=== PATIENT | female | born 1955 | race Caucasian/White ===

== ENCOUNTER 2018-07-31 10:00 | Inpatient (IN) ==
--- NOTE | 2018-07-31 10:18 | PROVIDER DOCUMENTATION ---
HPI-General Adult - General Chief Complaint: Fall Stated Complaint: FALL Time Seen by Provider: 07/31/18 10:08 Source: patient Allergies/Adverse Reactions: Patient Allergies Allergy/AdvReac Type Severity Reaction Status Date / Time No Known Allergies Allergy Verified 08/17/17 15:16 Home Medications: Home Medication List Medication Instructions Recorded Confirmed Last Taken Type ATORVAstatin [Lipitor] 1 tab PO HS 08/17/17 08/17/17 Unknown History Albuterol Sulfate Inhaler 4 puff PO DAILY 08/17/17 08/17/17 Unknown History [Ventolin Hfa] Alprazolam 1 tab PO TID 08/17/17 08/17/17 Unknown History Aspirin [Aspir-Low] 1 tab PO DAILY 08/17/17 08/17/17 Unknown History Diphenhydramine HCl [Allergy 2 tab PO DAILY 08/17/17 08/17/17 Unknown History Relief] Fluticasone/[place] 100/50 INH 2 puff PO DAILY 08/17/17 08/17/17 Unknown History [Advair 100/50 Diskus] Gabapentin 1 cap PO TID 08/17/17 08/17/17 Unknown History Hydrocodone/Acetaminophen [[place] 1 each PO Q8HR 08/17/17 08/17/17 Unknown History 10-325 Tablet] Levothyroxine [Synthroid] 1 tab PO DAILY 08/17/17 08/17/17 Unknown History Methocarbamol [Robaxin-750] 1 tab PO BID 08/17/17 08/17/17 Unknown History Metoprolol [Lopressor] 1 tab PO DAILY 08/17/17 08/17/17 Unknown History Mirtazapine [Remeron] 1 tab PO HS 08/17/17 08/17/17 Unknown History Omeprazole 1 cap PO DAILY 08/17/17 08/17/17 Unknown History Polyethylene Glycol 3350 1 packet PO DAILY 08/17/17 08/17/17 Unknown History Risperidone 1 tab PO BID 08/17/17 08/17/17 Unknown History Trazodone [Desyrel] 1 tab PO HS 08/17/17 08/17/17 Unknown History Valacyclovir HCl [Valacyclovir] 1 tab PO TID 08/17/17 08/17/17 Unknown History - History of Present Illness -Gen Adult Nature of Presenting Problems: Pt. is 62 yof that presents with c/o weakness for three days. Pt. reports today she dropped her coffee three times and had a BM on herself three times. She has multiple medical issues and is on many medications. Location of Pain/Injury: reports: none. denies: head, face, mouth, neck, chest, upper extremity, hand(s), abdomen, back, pelvis, genitalia, lower extremity, feet, upper body, lower body, generalized, other Pain Radiation: reports: no radiation. denies: arm(s), back, buttocks, chest, epigastric, feet, groin, jaw, flank (L), legs (lower), LLQ, LUQ, neck, periumbilical, flank (R), RLQ, RUQ, shoulder(s), scapula, scrotal, sternal notch, suprapubic, legs (upper), urethral, vaginal, other Quality of Pain: reports: none. denies: burning, pressure, sharp, throbbing Severity: reports: mild. denies: moderate, severe Onset/Duration: reports: gradual, 3 days ago Timing: reports: still present. denies: improving, gone now, constant, getting worse Context/Activities at Onset: reports: none. denies: light activity, moderate activity, vigorous activity, recent emotional stress, recent physical stress, recent trauma history, possible bad food, cold exposure, eating, out of country travel, rest, sleep, sexual activity, other Modifying Factors: improves with: nothing Associated Symptoms: reports: diarrhea, malaise, weakness. denies: denies symptoms, anxiety, arm pain, back/neck pain, chest pain, constipation, cough, diaphoresis, dizziness, EENT symptoms, fatigue, fever/chills, genitourinary problems, headaches, heartburn, joint pain, loss of appetite, muscle aches, sinu s congestion/drainage, nausea, rash, seizure, shortness of breath, sensory/motor loss, pain with inspiration, swelling/mass in abdomen, syncope, vomiting, trouble walking, other Similar Symptoms Previously?: Yes Recently seen or treated by another doctor?: No Review of Systems - Adult - REVIEW OF SYSTEMS - ADULT Constitutional: reports: see jazz SALINAS. denies: night sweats, weight gain, weight loss Eyes: reports: no symptoms reported Ears, Nose, Mouth & Throat: reports: no symptoms reported Cardiovascular: reports: no symptoms reported Respiratory: reports: no symptoms reported Gastrointestinal: reports: see HPI, diarrhea. denies: hematemesis, frequent heartburn, vomiting Genitourinary: reports: no symptoms reported Musculoskeletal: reports: see HPI, muscle weakness. denies: back pain, joint pain, joint swelling, neck pain Integumentary: reports: no symptoms reported Neurological: reports: no symptoms reported Psychiatric: reports: no symptoms reported Past History - Adult - PAST MEDICAL HISTORY-ADULT Review of Records: reports: Old Records Reviewed, Nursing Assessment Review, Medications Reviewed, Social history reviewed & non-contributory. Major Childhood Illnesses: reports: denies history Cardiovascular: reports: denies history Respiratory: reports: denies history Gastrointestinal: reports: denies history Obstetrical/Gynecological: reports: denies history Genitourinary: reports: denies history Musculoskeletal: reports: denies history Neurological: reports: denies history Endocrine/Immune: reports: denies history Other Conditions: reports: denies history - IMMUNIZATION STATUS Childhood Immunizations: See Nurse Assessment Flu Vaccine: See Nurse Assessment - FAMILY HISTORY Family History: reviewed, not pertinent - SOCIAL HISTORY Smoking: denies Physical Exam-General - PHYSICAL EXAM-ADULT Initial Vital Signs Reviewed: Yes - CONSTITUTIONAL General Appearance: alert, no apparent distress, obese - EYES Eyes: PERRL/EOMI, pink conjunctivae. negative: conjuctival exudate, scleral icterus, subconjunctival hemorrhage - HEAD, EARS, NOSE, MOUTH & THROAT HENMT: normocephalic/atraumatic, moist mucous membranes. negative: angioedema, frontal tenderness, maxillary tenderness - NECK Neck: non-tender, full range of motion, supple, normal inspection. negative: lymphadenopathy, trachial deviation, thyromegaly - RESPIRATORY Respiratory: lungs clear, normal breath sounds. negative: crackles, rales, rhonchi, stridor, wheezing - CARDIOVASCULAR Cardiovascular: normal peripheral pulses, regular rate, rhythm, no edema, no JVD . negative: extra beats, friction rub, irregularly irregular - GASTROINTESTINAL (ABDOMEN) Abdominal Exam: non tender, soft, abnormal bowel sounds (hypoactive). negative: rigid, rebound, tenderness, hernia, mass - LYMPHATIC Lymphatic: no adenopathy. negative: axilla node tender, cervical node tenderness - MUSCULOSKELETAL Back Exam: normal inspection, no CVA tenderness, no vertebral tenderness. negat lacy: ecchymosis, swelling, vertebral tenderness Extremity: normal range of motion, non-tender, normal inspection. negative: deformity, erythema, inflammation, swelling, tenderness Peripheral Pulses: radial (R): 2+, radial (L): 2+ - SKIN Integumentary: normal color, normal turgor, warm/dry. negative: cyanosis, jaundice, pallor, tenderness, warm - NEUROLOGIC Neurologic: grossly normal, no motor/sensory deficits, motor weakness. negative: aphasia, facial droop, focal weakness, sensory deficit - PSYCHIATRIC Psych/Mental Status: normal mood/affect, normal thought content, normal thought process, oriented x 3. negative: anxious, paranoid, tearful Progress - PLAN OF CARE/RESULTS Progress/Plan/Lab Results: Vital Signs - 8 hr 07/31/18 10:02 Temperature 97.4 F L Pulse Rate 73 Respiratory Rate 20 Blood Pressure 125/61 O2 Sat by Pulse Oximetry 94 L Orders Category Date Time Status FSBS [Finger Stick Blood Sugar (ED)] DIRECTED Care 07/31/18 10:12 Ordered Saline Loc NOW Care 07/31/18 10:12 Ordered FLAT/UPRIGHT ABD/1 VIEW CHEST [RAD] Stat Exams 07/31/18 10:13 Ordered CBC WITH ELECTRONIC DIFF [HEME] Stat Lab 07/31/18 10:13 Uncollected CK PROFILE [SP CHEM] Stat Lab 07/31/18 10:13 Uncollected COMPREHENSIVE METABOLIC PANEL [CHEM] Stat Lab 07/31/18 10:13 Uncollected PRO B-NATRIURETIC PEPTIDE Stat Lab 07/31/18 10:13 Ordered TROPONIN T Stat Lab 07/31/18 10:13 Uncollected TSH Stat Lab 07/31/18 10:[address] W/POSS RFLX CULT [URINALYSIS] Stat Lab 07/31/18 10:13 Uncollected EKG [EKG] Stat Ther 07/31/18 10:12 Ordered Laboratory Tests 07/31/18 07/31/18 07/31/18 10:23 10:25 10:25 WBC 11.49 H RBC 3.61 L Hgb 8.3 L Hct 28.3 L MCV 78.4 L MCH 23.0 L MCHC 29.3 L RDW Std Deviation 16.4 H Plt Count 353 MPV 10.9 H Immature Gran % (Auto) 0.3 Neut % (Auto) 81.0 H Lymph % (Auto) 11.5 L [place] % (Auto) 5.2 Eos % (Auto) 1.8 Baso % (Auto) 0.2 Immature Gran # (Auto) 0.04 Neut # (Auto) 9.30 H Lymph # (Auto) 1.32 [place] # (Auto) 0.60 H Eos # (Auto) 0.21 Baso # (Auto) 0.02 POC Glucose 184 H Troponin T Oun-R-Djqdqdtnrrb Pept 6286 H Urine Source Urine Color Urine Turbidity Urine pH Ur Specific [place] Urine Protein Ur Glucose (Stick) Ur Ketones (Stick) Urine Blood Urine Nitrite Urine Bilirubin Urobilinogen Dipstick Urine Leukocytes Urine WBC (Auto) Urine RBC (Auto) U Epithel Cells (Auto) Urine Bacteria (Auto) 07/31/18 07/31/18 10:25 10:57 WBC RBC Hgb Hct MCV MCH MCHC RDW Std Deviation Plt Count MPV Immature Gran % (Auto) Neut % (Auto) Lymph % (Auto) [place] % (Auto) Eos % (Auto) Baso % (Auto) Immature Gran # (Auto) Neut # (Auto) Lymph # (Auto) [place] # (Auto) Eos # (Auto) Baso # (Auto) POC Glucose Troponin T 0.031 Rmj-V-Ntlgrbeqroh Pept Urine Source CLEAN CATCH Urine Color YELLOW Urine Turbidity CLEAR Urine pH 5.0 Ur Specific [place] 1.012 Urine Protein TRACE A Ur Glucose (Stick) NEGATIVE Ur Ketones (Stick) NEGATIVE Urine Blood NEGATIVE Urine Nitrite NEGATIVE Urine Bilirubin NEGATIVE Urobilinogen Dipstick NORMAL Urine Leukocytes SMALL A Urine WBC (Auto) 10-20 A Urine RBC (Auto) <10 U Epithel Cells (Auto) <10 Urine Bacteria (Auto) 2+ Discussed results and plan of care with patient. Patient agrees with plan and verbalizes understanding. Result Diagrams: 07/31/18 10:25 07/31/18 10:25 - EKG 1 Time of EKG reading by physician:: 10:28 EKG Read and Signed by:: Cayetano Carson EKG Interpretation (*Must complete 3 of following elements*): Abnormal Rate: 70 Rhythm: NSR with RBBB QRS: RBB - XRAY 1 XRAY Study: Chest ([facility] [address], [address], [place] [address] Department of Imaging Patient: RAYO PHILLIPS Date: 07/31/18#: [id number] : 1955DM Status: REG ERAt#: [id number] Age/Sex: 62/FRoom/Bed: Loc: ED Ordering Physician: Mike Moreland Family Physician: Cesar Trinh MD Reason for Procedure: abd pain Signed EXAM: FLAT/UPRIGHT ABD/1 VIEW CHEST 07/31/2018 HISTORY: abd pain TECHNIQUE: Flat and upright abdomen with PA chest COMMENT: There is some gas in the stomach and transverse colon. There is generally possibility of bowel gas elsewhere. There are surgical clips in the right upper quadrant. The heart size is enlarged and the pulmonary vascularity appears somewhat increased. The lungs are not as well-expanded as on 08/17/2017. IMPRESSION: Nonspecific abdomen. Cardiomegaly and possible mild pulmonary edema. Electronically signed by Dino Mendoza 07/31/2018 11:03 AM 07/31/18 1103 Interpreting Physician: Dino Mendoza MD Dictated Date/Time: 1102 cc: Mike Moreland; Cesar Trinh MD), Abdomen XRAY Interpretation: See note - CONSULTS/PCP/HOSPITALIST Notification #1 *Consult/PCP/Hospitalist*: Nori Salguero Time Discussed: 11:33 Reason/Comments: Admission Consult Disposition: Will see in ED, Admit Departure - Departure Date of Disposition Decision: 07/31/18 Time of Disposition Decision: 11:34 DIAGNOSIS: Hyperglycemia, Hyponatremia, Hyperkalemia Anemia Qualifiers: Anemia type: unspecified type Qualified Code(s): D64.9 - Anemia, unspecified CHF exacerbation Qualifiers: Heart failure type: unspecified Qualified Code(s): I50.9 - Heart failure, unspecified Acute renal failure Qualifiers: Acute renal failure type: unspecified Qualified Code(s): N17.9 - Acute kidney failure, unspecified Disposition: ADMITTED INPATIENT 09 Certified Medical Emergency: Emergent Condition: Stable Referrals and Follow-Ups: Cesar Trinh MD [Primary Care Provider] - - Critical Care Note This patient required my direct & personal management of CC.: Yes Total Time (mins): 35 Critical Care Statement: This patient required my direct personal management to treat or rule out processes, the absence of which, could potentiallly result in sudden, clinically significant life or limb threatening deterioration. Attestation - Physician/ DEAN Attestation Patient care was provided by Advanced Practice Provider:: Yes Advanced Practice Provider:: Mike Moreland Advanced Practice Provider documentation review:: The Mid-level provider documentation, treatment plan and medical decision making was reviewed by the physician who agrees with all treatment and medical decision making by the MLP. The physician spent face to face time with patient:: No Advanced Practice Provider documentation review:: Supervising physician onsite and consulted in the evaluation and care of this patient. The physician did not have a face to face encounter with the patient.
[2018-07-31 10:45] LABS: BASO# 0.02 X1000 (0.0-0.2); BASO% 0.2 % (0.0-0.8); EOS# 0.21 X1000 (0.0-0.7); EOS% 1.8 % (0.0-10.0); HEMATOCRIT 28.3 % (37.0-47.0); HEMOGLOBIN 8.3 g/dL (12.0-16.0); IMM GRAN# 0.04 X1000 (0.0-0.04); IMM GRAN% 0.3 % (0.0-0.5); LYMPH# 1.32 X1000 (1.2-3.4); LYMPH% 11.5 % (20.5-51.1); MCHC 29.3 g/dL (33-37); MCV 78.4 FL (81-99); MONO% 5.2 % (1.7-9.3); MPV 10.9 FL (7.4-10.4); PLT 353 X1000 (130-400); RBC 3.61 XMIL (4.2-5.4); RDW 16.4 % (11.5-14.5); WBC 11.49 X1000 (4.8-10.8)
[2018-07-31 11:04] LABS: URINE SOURCE CLEAN CATCH
--- NOTE | 2018-07-31 11:05 | Diag Imaging Result Doc PS360 ---
EXAM: FLAT/UPRIGHT ABD/1 VIEW CHEST 07/31/2018 HISTORY: abd pain TECHNIQUE: Flat and upright abdomen with PA chest COMMENT: There is some gas in the stomach and transverse colon. There is generally possibility of bowel gas elsewhere. There are surgical clips in the right upper quadrant. The heart size is enlarged and the pulmonary vascularity appears somewhat increased. The lungs are not as well-expanded as on 08/17/2017. IMPRESSION: Nonspecific abdomen. Cardiomegaly and possible mild pulmonary edema. Electronically signed by Dino Mendoza 07/31/2018 11:03 AM
[2018-07-31 11:07] LABS: BILIRUBIN URINE NEGATIVE (NEGATIVE); BLOOD URINE NEGATIVE (NEGATIVE); COLOR YELLOW; GLUCOSE URINE NEGATIVE (NEGATIVE); KETONE URINE NEGATIVE (NEGATIVE); LEUKOCYTES URINE SMALL (NEGATIVE); NITRITE URINE NEGATIVE (NEGATIVE); PROTEIN URINE TRACE mg/dL (NEGATIVE); SP GRAVITY URINE 1.012; TURBIDITY URINE CLEAR (CLEAR); UR EPITHELIAL CELLS <10 /HPF (<10); URINE BACTERIA 2+ /HPF; URINE RBC <10 /HPF (<10); UROBILINOGEN URINE NORMAL (NORMAL)
[2018-07-31] MEDS ORDERED: LASIX IV ONE (11:33)
--- NOTE | 2018-07-31 11:40 | EKG Report ---
Test Performed on : 07/31/2018 10:25:29 AM Test Reason : weakness Blood Pressure : / mmHG Vent. Rate : 070 BPM Atrial Rate : 070 BPM P-R Int : 190 ms QRS Dur : 104 ms QT Int : 414 ms P-R-T Axes : 025 028 149 degrees QTc Int : 447 ms Normal sinus rhythm. Incomplete right bundle branch block Possible Inferior infarct (cited on or before 26-FEB-2009) ST & T wave abnormality, consider lateral ischemia Abnormal ECG When compared with ECG of 17-AUG-2017 15:04, T wave inversion more evident in Anterolateral leads Unconfirmed Result
[2018-07-31 11:42] LABS: ALB/GLOB RATIO 1.4; ALBUMIN 4.2 g/dL (3.5-5.0); TOTAL BILIRUBIN 0.2 mg/dL (0.20-1.00); TOTAL PROTEIN 7.2 g/dL (6.3-8.3)
[2018-07-31 11:44] LABS: POTASSIUM 6.5 mmol/L (3.5-5.1)
[2018-07-31] MEDS ORDERED: NS 1,000 ML IV ONE (11:47)
[2018-07-31] MEDS ORDERED: ALBUTEROL 0.5% INH CONC FOR HYPERKALEMIA INH ONE (12:20)
[2018-07-31] MEDS ORDERED: HUMULIN R IV ONE (12:21)
[2018-07-31] MEDS ORDERED: SODIUM BICARBONATE 8.4% IV PUSH ONE (12:21)
[2018-07-31] MEDS ORDERED: CALCIUM GLUCONATE 1 GM in NS 50 ML IV ONE (12:21)
[2018-07-31] MEDS ORDERED: D50W SYRINGE IV ONE (12:21)
[2018-07-31 12:34] LABS: CK INDEX 2.4 (0.0-2.5); CK-MB 8.43 ng/mL (0.0-5.0)
[2018-07-31] MEDS ORDERED: ALBUTEROL 0.5% INH CONC FOR HYPERKALEMIA ONE (12:46)
[2018-07-31 12:51] LABS: UR CREAT RANDOM 135.1 mg/dL (11-20); UR PROT RANDOM 10.6 mg/dL
[2018-07-31] MEDS ORDERED: ZOFRAN IV PRN (13:06)
[2018-07-31] MEDS ORDERED: NS 1,000 ML IV SCH (13:15)
[2018-07-31] MEDS ORDERED: LOKELMA POWDER PACKET PO ONE (13:31)
[2018-07-31] MEDS ORDERED: SODIUM CHLORIDE 0.9% INJ PRN (13:57)
[2018-07-31] MEDS ORDERED: LEVOPHED 8 MG in D5 1/2 NS 250 ML IV SCH (14:00)
[2018-07-31] MEDS ORDERED: SODIUM CHLORIDE 0.9% INJ SCH (14:15)
[2018-07-31 15:03] LABS: ALLEN TEST NO; BE -5.5 mmoll (-3.0-3.0); BLOOD TYPE ARTERIAL; HCO3-(ACT) 20.6 mmoll (20.0-26.0); O2(CT) 10.4 mL/dL (15.0-23.0); O2HB 92.8 % (95.0-99.0); PO2(98.6) 71 mmHg (60-100); SAMPLE BLOOD; SAO2 95.1 % (95.0-100.0); THB 7.9 g/dL (11.5-17.4); pH(98.6) 7.23 (7.35-7.45)
[2018-07-31 15:04] LABS: MODALITY CANNULA
[2018-07-31 15:05] LABS: PCO2(98.6) 52 mmHg (35-45)
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
[2018-07-31] MEDS: HUMULIN R SUBQ SCH ×2 (16:45→21:01)
[2018-07-31] MEDS ORDERED: XANAX PO SCH (17:00)
[2018-07-31 17:21] LABS: CALCIUM 8.9 mg/dL (8.8-10.2); CK INDEX 2.4 (0.0-2.5); CK-MB 7.72 ng/mL (0.0-5.0); CREATININE 4.8 mg/dL (0.5-0.9); PHOSPHORUS 6.9 mg/dL (2.7-4.5); POTASSIUM 4.9 mmol/L (3.5-5.1)
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
[2018-07-31] MEDS: SODIUM BICARBONATE 8.4% 100 MEQ in D5W 1,000 ML IV SCH (18:18)
[2018-07-31] MEDS: ROCEPHIN 1 GM in NS 50 ML IV SCH (18:18)
[2018-07-31] MEDS: NORCO-7.5 PO PRN (22:47)
[2018-08-01 04:26] LABS: ALLEN TEST YES; BE 2.9 mmoll (-3.0-3.0); BLOOD TYPE ARTERIAL; HCO3-(ACT) 27.2 mmoll (20.0-26.0); METHB 0.7 % (0.0-1.5); O2(CT) 10.8 mL/dL (15.0-23.0); O2HB 96.7 % (95.0-99.0); PO2(98.6) 98 mmHg (60-100); SAMPLE BLOOD; SAO2 99.6 % (95.0-100.0); THB 7.8 g/dL (11.5-17.4); pH(98.6) 7.36 (7.35-7.45)
[2018-08-01 04:27] LABS: MODALITY CANNULA; PCO2(98.6) 51 mmHg (35-45)
[2018-08-01 05:23] LABS: BASO# 0.01 X1000 (0.0-0.2); BASO% 0.1 % (0.0-0.8); EOS# 0.21 X1000 (0.0-0.7); EOS% 1.9 % (0.0-10.0); HEMATOCRIT 25.5 % (37.0-47.0); HEMOGLOBIN 7.5 g/dL (12.0-16.0); IMM GRAN# 0.04 X1000 (0.0-0.04); IMM GRAN% 0.4 % (0.0-0.5); LYMPH# 1.51 X1000 (1.2-3.4); LYMPH% 13.4 % (20.5-51.1); MCH 22.8 PG (27-31); MCHC 29.4 g/dL (33-37); MCV 77.5 FL (81-99); MONO# 0.86 X1000 (0.11-0.59); MONO% 7.6 % (1.7-9.3); MPV 10.9 FL (7.4-10.4); NEUT# 8.62 X1000 (1.4-6.5); NEUT% 76.6 % (42.2-75.2); PLT 375 X1000 (130-400); RBC 3.29 XMIL (4.2-5.4); RDW 16.4 % (11.5-14.5); WBC 11.25 X1000 (4.8-10.8)
[2018-08-01 05:49] LABS: ALBUMIN 3.5 g/dL (3.5-5.0); CALCIUM 8.4 mg/dL (8.8-10.2); CREATININE 2.9 mg/dL (0.5-0.9); PHOSPHORUS 4.6 mg/dL (2.7-4.5); POTASSIUM 5.1 mmol/L (3.5-5.1)
[2018-08-01] MEDS: HUMULIN R SUBQ SCH ×4 (06:03→20:45)
[2018-08-01] MEDS: PROTONIX IV SCH (06:09)
[2018-08-01] MEDS ORDERED: SYNTHROID IV SCH (07:00)
[2018-08-01] MEDS ORDERED: SYNTHROID PO SCH ×2 (07:00→09:00)
[2018-08-01] MEDS: SODIUM BICARBONATE 8.4% 100 MEQ in D5W 1,000 ML IV SCH (07:07)
--- NOTE | 2018-08-01 07:42 | EKG Report ---
Test Performed on : 08/01/2018 07:31:09 AM Test Reason : tachycardia Blood Pressure : / mmHG Vent. Rate : 076 BPM Atrial Rate : 076 BPM P-R Int : 184 ms QRS Dur : 092 ms QT Int : 406 ms P-R-T Axes : 032 064 145 degrees QTc Int : 456 ms Normal sinus rhythm. Incomplete right bundle branch block Nonspecific T wave abnormality Abnormal ECG When compared with ECG of 31-JUL-2018 10:25, (Unconfirmed) Borderline criteria for Inferior infarct are no longer present Confirmed by Klarissa GAITAN, Aniceto Horn ([id number]) on 08/05/2018 7:26:32 PM
--- NOTE | 2018-08-01 09:13 | Diag Imaging Result Doc PS360 ---
EXAM: CHEST-PORTABLE 08/01/2018 HISTORY: dyspnea TECHNIQUE: AP portable at 0848 COMMENT: There is cardiomegaly. There is increasing interstitial pulmonary edema. IMPRESSION: Worsened pulmonary edema. Electronically signed by Dino Mendoza 08/01/2018 9:11 AM
[2018-08-01] MEDS: NORCO-7.5 PO PRN ×2 (09:17→18:25)
[2018-08-01] MEDS: NS 1,000 ML IV SCH ×2 (09:18→20:56)
[2018-08-01] MEDS ORDERED: LASIX IV ONE (09:22)
--- NOTE | 2018-08-01 16:04 | NEPHROLOGY PROGRESS NOTE ---
DATE: 08/01/2018 SUBJECTIVE: No complaints today. No nausea, vomiting or other complaints. OBJECTIVE: Vital Signs: Blood pressure 114/66, heart rate 82, respirations 17, afebrile. Generally: No acute distress. Skin: Warm and dry. Neck: Neck veins are not distended. Heart: Regular. No gallops. Lungs: Equal. No crackles. Abdomen: Soft, nontender. Bowel sounds present. Extremities: Have 1+ edema. No clubbing or cyanosis. IMPRESSION: Acute kidney injury secondary to intravascular volume depletion in the context of angiotensin receptor mariya. Urine output is improving. Creatinine is falling. BUN is falling. Excellent urine output. Continue current care. cc: Eleazar De oLs Santos MD
[2018-08-01] MEDS: ROCEPHIN 1 GM in NS 50 ML IV SCH (16:54)
--- NOTE | 2018-08-01 17:46 | PROGRESS NOTE ---
DATE: 08/01/2018 SUBJECTIVE: The patient is resting comfortably in bed. She states that she feels a lot better today. No acute events noted overnight. OBJECTIVE: Vital Signs: Temperature 98.6 degrees, blood pressure 119/74, heart rate 78, respirations 17, O2 saturations 95% on 3 L nasal cannula. General: This is a chronically ill- appearing elderly female lying in bed in no acute distress. Heart: S1, S2 normal. Regular rate and rhythm. Lungs: Equal air entry bilaterally. No crackles. No rales. Abdomen: Positive bowel sounds. Soft, nontender, nondistended. Extremities: No edema. No cyanosis. Neurologic: The patient is alert and oriented x4. LABORATORY DATA: White blood cell count 11, hemoglobin 7.5, hematocrit 25, platelets 375,000. ABG: pH of 7.36, pCO2 51, pO2 98, bicarb 27, sodium 131, potassium 5.1, chloride 93, CO2 26, BUN 52, creatinine 2.9, glucose 173, phosphorus 4.6, albumin 3.5. IMAGING: Chest x-ray shows pulmonary edema. ASSESSMENT AND PLAN: 1. Acute kidney injury. Slowly improving. We will discontinue the bicarb drip and start the patient on normal saline. The patient's urine output remains adequate, and her BUN and creatinine are improving. Further recommendations to follow from the venture capitalist. 2. Urinary tract infection. The urine culture is growing gram-negative rods. Continue on Rocephin pending the final culture results. 3. Diarrhea. We will order stool studies. 4. Hypotension. We will wean off the Levophed. 5. Hypothyroidism. Continue on Synthroid. 6. Morbid obesity. Aware. 7. Diabetes mellitus type 2. Continue on sliding scale insulin. 8. Chronic pain. Continue on [place] as needed. 9. Anemia. We will check iron studies. 10. Deep vein thrombosis prophylaxis. We will start the patient on heparin. cc: MD SHANNON Dimas
--- NOTE | 2018-08-01 18:09 | Diag Imaging Result Doc PS360 ---
EXAM: US RENAL 2 (RETROPER) COMPLETE - 08/01/2018 HISTORY: niru, hyperkalemia TECHNIQUE: Bilateral renal ultrasound COMPARISON: None. FINDINGS: The right kidney measures 9.6 x 4 point 4 x 4 centimeters in size, with cortical thickness of approximately 0.9 cm. The left kidney measures 10.2 x 5 x 4.4 cm in size, with cortical thickness of approximately 0.9 cm. There is no renal mass, stone, or hydronephrosis identified. The urinary bladder is decompressed by Davis catheter and is not evaluated. IMPRESSION: No visible renal abnormality. Electronically signed by Carlos Harry 08/01/2018 6:06 PM
[2018-08-01] MEDS: HEPARIN SUBQ SCH (20:56)
[2018-08-02] MEDS: NORCO-7.5 PO PRN (02:27)
[2018-08-02] MEDS: HUMULIN R SUBQ SCH ×4 (06:10→20:28)
[2018-08-02] MEDS: SYNTHROID PO SCH (06:13)
[2018-08-02] MEDS: PROTONIX IV SCH (06:13)
[2018-08-02 06:27] LABS: HEMATOCRIT 27.1 % (37.0-47.0); HEMOGLOBIN 7.9 g/dL (12.0-16.0); MCH 22.8 PG (27-31); MCHC 29.2 g/dL (33-37); MCV 78.3 FL (81-99); MPV 10.4 FL (7.4-10.4); RBC 3.46 XMIL (4.2-5.4); RDW 16.5 % (11.5-14.5); WBC 11.17 X1000 (4.8-10.8)
[2018-08-02 06:41] LABS: ALBUMIN 3.6 g/dL (3.5-5.0); CALCIUM 9.1 mg/dL (8.8-10.2); CREATININE 1.4 mg/dL (0.5-0.9); IRON SATURATION 4 %; PHOSPHORUS 2.1 mg/dL (2.7-4.5); TIBC 321 ug/dL; TOTAL IRON 14 ug/dL (49-151); UNBOUND IRON 307 ug/dL (112-346)
[2018-08-02 08:30] LABS: VITAMIN D 25 HYDROXY 81.9 NG/DL
[2018-08-02] MEDS: HEPARIN SUBQ SCH ×2 (08:59→20:25)
[2018-08-02] MEDS: NEURONTIN PO SCH ×3 (08:59→17:13)
[2018-08-02] MEDS: SOMA PO SCH ×2 (09:04→20:29)
[2018-08-02] MEDS: EFFEXOR PO SCH ×2 (09:35→20:25)
--- NOTE | 2018-08-02 12:19 | PROGRESS NOTE ---
DATE: 08/02/2018 SUBJECTIVE: The patient is awake and alert. She states that she did not sleep last night. OBJECTIVE: Vital Signs: Temperature 98.6 degrees, blood pressure 126/94, heart rate 99, respirations 25, O2 saturation 92% on 3 L nasal cannula. General: This is a chronically ill- appearing elderly female lying in bed in no acute distress. Heart: S1, S2 normal. Tachycardic. Lungs: Equal air entry bilaterally. No crackles. No rales. Abdomen: Positive bowel sounds. Soft, nontender, nondistended. Extremities: No edema. No cyanosis. Neurologic: The patient is alert and oriented x4. LABORATORY DATA: White blood cell count 11, hemoglobin 7.9, hematocrit 27, platelets 394,000, sodium 137, potassium 5, chloride 98, CO2 27, BUN 25, creatinine 1.4, glucose 128, phosphorus 2.1. ASSESSMENT AND PLAN: 1. Acute kidney injury, improved. Will discontinue the IV fluids. We will continue to monitor the patient's urine output closely. 2. Urinary tract infection secondary to Klebsiella. Continue on Rocephin. 3. Diarrhea. Improved. Stool studies are negative. 4. Chronic pain. Continue on the current medications. 5. Hypothyroidism. Continue on Synthroid. 6. Iron deficiency anemia. The hemoglobin and hematocrit are stable. We will start the patient on iron supplementation. 7. Obesity. Aware. 8. Deep vein thrombosis prophylaxis. Continue on heparin. 9. Disposition. The patient is stable for transfer to the medical floor. We will consult physical therapy. cc: Saima Salguero MD [facility]
--- NOTE | 2018-08-02 12:23 | Diag Imaging Result Doc PS360 ---
EXAM: CHEST-PORTABLE HISTORY: pulmonary edema TECHNIQUE: Portable chest single view COMPARISON: 08/01/2018 FINDINGS: Poor inspiratory effort. The heart is enlarged. There is mild pulmonary edema. This is slightly less pronounced than on the prior study. Sternal wires are present. No pleural effusions identified. IMPRESSION: Improvement in the pulmonary edema. Electronically signed by Cesar Chun 08/02/2018 12:20 PM
[2018-08-02] MEDS: NORCO-10 PO SCH ×2 (12:42→20:26)
[2018-08-02] MEDS: ROCEPHIN 1 GM in NS 50 ML IV SCH (17:13)
--- NOTE | 2018-08-02 18:15 | NEPHROLOGY PROGRESS NOTE ---
DATE: 08/02/2018 SUBJECTIVE: She is sitting up in the chair, eating her lunch. No complaints. Hoping for transfer to a regular floor bed. OBJECTIVE: Blood pressure 94/73, heart rate 101, respirations 29. Intake 3.4 L. Output 3.8 L. On physical exam, no acute distress. Skin is warm and dry. Neck veins are not distended. Heart is regular. No gallops. Lungs are equal. No crackles. Abdomen is soft, obese, nontender. Bowel sounds present. Extremities: Trace edema. No clubbing or cyanosis. IMPRESSION AND PLAN: Acute kidney injury. Secondary to intravascular volume depletion in the context of angiotensin receptor mariya therapy. Excellent urine output. Normal chemistries. Creatinine is down to 1.4. We will sign off today, but if we can be of further assistance, please do not hesitate to call. cc: Eleazar De Los Santos MD
[2018-08-02] MEDS ORDERED: DESYREL PO SCH (21:00)
[2018-08-02] MEDS ORDERED: ASPIRIN EC PO SCH (21:00)
[2018-08-02] MEDS ORDERED: REMERON PO SCH (21:00)
[2018-08-02] MEDS ORDERED: LIPITOR PO SCH (21:00)
[2018-08-03] MEDS: NORCO-10 PO SCH (05:03)
[2018-08-03] MEDS: SYNTHROID PO SCH (06:42)
[2018-08-03] MEDS: HUMULIN R SUBQ SCH (06:55)
[2018-08-03] MEDS: PROTONIX IV SCH (06:56)
[2018-08-03 07:12] LABS: HEMATOCRIT 29.9 % (37.0-47.0); HEMOGLOBIN 8.6 g/dL (12.0-16.0); MCH 23.6 PG (27-31); MCHC 28.8 g/dL (33-37); MCV 81.9 FL (81-99); MPV 10.3 FL (7.4-10.4); RBC 3.65 XMIL (4.2-5.4); WBC 11.88 X1000 (4.8-10.8)
[2018-08-03 07:31] LABS: ALBUMIN 3.6 g/dL (3.5-5.0); CALCIUM 9.3 mg/dL (8.8-10.2); CREATININE 1.1 mg/dL (0.5-0.9); POTASSIUM 4.8 mmol/L (3.5-5.1)
[2018-08-03] MEDS: HEPARIN SUBQ SCH (08:34)
[2018-08-03] MEDS: SOMA PO SCH (08:34)
[2018-08-03] MEDS: NEURONTIN PO SCH (08:34)
[2018-08-03] MEDS: EFFEXOR PO SCH (08:34)
[2018-08-03] MEDS ORDERED: ICAR-C PO SCH (09:00)
[2018-08-03] MEDS ORDERED: ALTACE PO SCH (09:45)
[2018-08-03] MEDS ORDERED: LOPRESSOR PO SCH (09:45)
[2018-08-03] MEDS ORDERED: SODIUM PHOSPHATE 40 MMOL in NS 250 ML IV ONE (10:30)
[2018-08-03 12:40] VITALS: BP 169/59
--- NOTE | 2018-08-11 20:04 | DISCHARGE SUMMARY ---
ADMISSION DATE: 07/31/2018 DISCHARGE DATE: 08/03/2018 FINAL DISCHARGE DIAGNOSES: 1. Acute kidney injury. 2. Urinary tract infection secondary to Klebsiella. 3. Diarrhea. 4. Chronic pain. 5. Hypothyroidism. 6. Iron deficiency anemia. 7. Obesity. CONSULTATIONS: Nephrology consultation with Dr. De Los Santos. HOSPITAL COURSE: Ms. Donahue is a 62-year-old female with a history of multiple medical problems who presented to the ER with a chief complaint of general malaise. On admission, the patient was noted to have a potassium of 6.5 and a BUN of 62 and a creatinine of 5. The patient was admitted to the hospitalist service. Also, the patient was noted to have a urinary tract infection. The patient was initially admitted to the ICU because she required pressor support. She was started on IV fluids and her urine output improved. Nephrology was also consulted for further recommendations. It was thought that the patient's renal failure was secondary to sepsis as a result of her urinary tract infection. The patient continued to improve clinically. She was ultimately transferred out of the ICU and her IV fluids were discontinued. She was also seen by Physical therapy and ambulated without any difficulty. Ultimately the urine culture grew out Klebsiella and the patient's antibiotics were adjusted. The patient continued to improve clinically and was cleared for discharge on 08/03/2018. The patient was noted to have a creatinine of 1.1 on the day of discharge. DISCHARGE MEDICATIONS: 1. Keflex 500 mg oral twice a day. 2. Lactobacillus 1 tab oral twice a day. 3. Icar C one tab oral twice a day. 4. Albuterol inhaler p.r.n. 5. Aspirin 81 mg oral daily. 6. Trazodone 100 mg oral at bedtime. 7. Omeprazole 1 tab oral daily. 8. Xanax 1 tab oral 3 times a day. 9. Lipitor 40 mg oral at bedtime. 10. Gabapentin 300 mg oral 3 times a day. 11. Synthroid 1 tab oral daily. 12. Lopressor 250 mg oral daily. 13. Remeron 45 mg oral at bedtime. 14. MiraLAX 1 packet oral daily. 15. [place] 10/325 one tab oral every 8 hours p.r.n. 16. Soma 350 mg oral twice a day. 17. Glargine 40 units subcutaneous daily. 18. Lasix 40 mg p.o. daily. 19. Trulicity 0.75 mg subcutaneous as directed. 20. Effexor ER 100 mg oral twice a day. 21. Metformin 500 mg oral twice a day. 22. Altace 10 mg oral daily. DISCHARGE DIET: 1800 ADA diet. ACTIVITY: As tolerated. FOLLOWUP INSTRUCTIONS: The patient will need to follow up with her primary care physician in 1 to 2 weeks. cc: Saima Salguero MD
== END 2018-08-03 13:47 | disposition home or self-care (01) | DRG 871 ==
LOC: ED 10:00 → ICU 12:59 → 3N 08-02 23:04
PROVIDERS: ATTEND Internal Medicine
CPT/HCPCS: 51702; 71010; 71045; 74022; 76770; 80053; 80069; 81001; 82009; 82306; 82438; 82550; 82553; 82570; 82607; 82728; 82746; 82784; 82805; 82948; 83540; 83550; 83630; 83735; 83880; 84100; 84155; 84156; 84165; 84300; 84302; 84443; 84484; 84540; 84999; 85025; 85027; 85651; 86038; 86039; 86334; 87045; 87046; 87077; 87088; 87177; 87186; 87205; 87324; 87449; 88313; 89055; 93005; 93010; 94640; 94761; 94762; 96365; 96375; 97116; 97162; 99285; 99291; A9270; C9113; J0610; J0696; J1644; J1940; J7030; J7050; J7070; S0164; XXXXX

== ENCOUNTER 2019-06-02 09:23 | Inpatient (IN) ==
--- NOTE | 2019-06-02 10:10 | PROVIDER DOCUMENTATION ---
HPI-General Adult - General Chief Complaint: Abnormal Lab[s] Stated Complaint: SOB,LOW BLOOD COUNT Time Seen by Provider: 06/02/19 09:59 Source: patient Allergies/Adverse Reactions: Patient Allergies Allergy/AdvReac Type Severity Reaction Status Date / Time diltiazem [From Cardizem] Allergy RASH Verified 06/02/19 11:34 Penicillins Allergy RASH Verified 06/02/19 11:34 Sulfa (Sulfonamide Allergy RASH Verified 06/02/19 11:34 Antibiotics) Home Medications: Home Medication List Medication Instructions Recorded Confirmed Last Taken Type ATORVAstatin [Lipitor] 1 tab PO HS 08/17/17 06/02/19 Unknown History Albuterol Sulfate Inhaler 4 puff PO DAILY 08/17/17 06/02/19 Unknown History [Ventolin Hfa] Hydrocodone/Acetaminophen [[place] 1 each PO Q8HR 08/17/17 07/31/18 Unknown History 10-325 Tablet] Levothyroxine [Synthroid] 1 tab PO DAILY 08/17/17 06/02/19 Unknown History Metoprolol [Lopressor] 1 tab PO DAILY 08/17/17 07/31/18 Unknown History Mirtazapine [Remeron] 30 tab PO HS 08/17/17 06/02/19 Unknown History Insulin Glargine,Hum.rec.anlog 60 units SQ DAILY 07/31/18 06/02/19 Unknown History [Lantus Solostar] Insulin Glargine,Hum.rec.anlog 40 unit SQ DAILY 07/31/18 06/02/19 Unknown History [[place]oujeo Max Solostar] Venlafaxine HCl [Venlafaxine HCl 1 tab PO TID 07/31/18 06/02/19 Unknown History ER] Iron Carbonyl/Ascorbic Acid 1 ea PO BID #60 tab 08/03/18 06/02/19 Unknown Rx [Icar-C] Lactobacillus Rhamnosus GG 1 ea PO BID #60 cap 08/03/18 06/02/19 Unknown Rx [Culturelle] Allopurinol [Zyloprim] 1 tab PO DAILY 06/02/19 06/02/19 Unknown History Apixaban [Eliquis] 1 tab PO BID 06/02/19 06/02/19 Unknown History Digoxin 1 tab PO DAILY 06/02/19 06/02/19 Unknown History Ergocalciferol (Vitamin D2) 1 tab PO DAILY 06/02/19 06/02/19 Unknown History [Vitamin D] Furosemide [Lasix] 1 tab PO DAILY 06/02/19 06/02/19 Unknown History Gabapentin 1 tab PO TID PRN 06/02/19 06/02/19 Unknown History Glimepiride 1 tab PO DAILY 06/02/19 06/02/19 Unknown History Hydrocodone/Acetaminophen 1 tab PO TID PRN 06/02/19 06/02/19 Unknown History [Hydrocodone-Acetamin 10-325 mg] Linaclotide [Linzess] 1 tab PO DAILY 06/02/19 06/02/19 Unknown History Nortriptyline HCl 1 tab PO DAILY 06/02/19 06/02/19 Unknown History Omeprazole 1 tab PO DAILY 06/02/19 06/02/19 Unknown History Pramipexole Di-HCl [Pramipexole 1 tab PO DAILY 06/02/19 06/02/19 Unknown History Dihydrochloride] Risperidone 1 tab PO BID 06/02/19 06/02/19 Unknown History Trazodone [Desyrel] 1 tab PO QHS 06/02/19 06/02/19 Unknown History - History of Present Illness -Gen Adult Nature of Presenting Problems: [id number] comes in with c/o hgb of 6 sent here by her PCP Dr. Cesar Trinh. Patient states she has been passing blood clots through her nose for the past month. Patient does take Eliquis for her Afib. Patient states she wears 2LNC all the time and she thinks the oxygen is drying her nose and causing it to bleed. Patient is pale in appearance. Location of Pain/Injury: reports: none Pain Radiation: reports: no radiation Quality of Pain: reports: none Onset/Duration: reports: other (1 month) Timing: reports: still present (last nose bleed was on Saturday) Context/Activities at Onset: reports: none Modifying Factors: improves with: nothing Associated Symptoms: reports: cough, fatigue, malaise, weakness Review of Systems - Adult - REVIEW OF SYSTEMS - ADULT Constitutional: reports: chills. denies: fever Eyes: reports: no symptoms reported Ears, Nose, Mouth & Throat: reports: epistaxis Cardiovascular: reports: no symptoms reported Respiratory: reports: cough, shortness of breath (chronic patient is on home O2@2LNC) Gastrointestinal: reports: no symptoms reported. denies: constipation, diarrhea, nausea, rectal bleeding, vomiting Genitourinary: reports: no symptoms reported. denies: dysuria Musculoskeletal: reports: no symptoms reported Integumentary: reports: no symptoms reported Neurological: reports: no symptoms reported, dizziness/vertigo, syncope Psychiatric: reports: anxiety (chronic), depression (chronic) Endocrine: reports: no symptoms reported Hematologic/Lymphatic: reports: no symptoms reported Allergic/Immunologic: reports: no symptoms reported All Other Systems: Reviewed and Negative Past History - Adult - PAST MEDICAL HISTORY-ADULT Review of Records: reports: Old Records Reviewed, Nursing Assessment Review, Medications Reviewed, Social history reviewed & non-contributory. Major Childhood Illnesses: reports: denies history Cardiovascular: reports: A-Fib, arrhythmia, CAD, CHF, HTN, hyperlipidemia, PVD Respiratory: reports: COPD Gastrointestinal: reports: denies history Obstetrical/Gynecological: reports: denies history Genitourinary: reports: denies history Musculoskeletal: reports: denies history Neurological: reports: denies history Psychiatric: reports: anxiety, depression Endocrine/Immune: reports: Diabetes Diabetes Type: Type 2 Other Conditions: reports: denies history - PRIOR SURGERIES/PROCEDURES Surgical/Procedure History: reports: CABG - IMMUNIZATION STATUS Childhood Immunizations: See Nurse Assessment Flu Vaccine: See Nurse Assessment - FAMILY HISTORY Family History: reviewed, not pertinent - SOCIAL HISTORY Smoking: denies Substance Use: denies Living Situation: family Physical Exam-General - PHYSICAL EXAM-ADULT Initial Vital Signs Reviewed: Yes - CONSTITUTIONAL General Appearance: alert, mild distress - EYES Eyes: PERRL/EOMI, pale conjunctivae - HEAD, EARS, NOSE, MOUTH & THROAT HENMT: moist mucous membranes - NECK Neck: non-tender, full range of motion - RESPIRATORY Respiratory: chest non-tender, lungs clear, normal breath sounds, no respiratory distress, no accessory muscle use - CARDIOVASCULAR Cardiovascular: normal peripheral pulses, no gallop, irregularly irregular - GASTROINTESTINAL (ABDOMEN) Abdominal Exam: normal bowel sounds, non tender, soft - LYMPHATIC Lymphatic: no adenopathy - MUSCULOSKELETAL Back Exam: normal inspection, no CVA tenderness Extremity: non-tender, normal gait, pedal edema (right leg greater than the left leg) Peripheral Pulses: radial (R): 2+, radial (L): 2+, dorsalis-pedis (R): 2+, dorsalis-pedis (L): 2+ - SKIN Integumentary: warm/dry, pallor - NEUROLOGIC Neurologic: grossly normal - PSYCHIATRIC Psych/Mental Status: normal mood/affect, normal thought content, normal thought process, oriented x 3 Progress - PLAN OF CARE/RESULTS Progress/Plan/Lab Results: Vital Signs - 8 hr 06/02/19 09:29 Temperature 98.5 F Pulse Rate 97 H Respiratory Rate 19 Blood Pressure 123/58 O2 Sat by Pulse Oximetry 93 L Orders Category Date Time Status NEWS Score 2-4:Order NEWS Lactate Series NOW Care 06/02/19 09:33 Active CBC WITH DIFF [HEME] Stat Lab 06/02/19 09:39 Results COMPREHENSIVE METABOLIC PANEL [CHEM] Stat Lab 06/02/19 09:39 Received LACTATE, PLASMA [CHEM] Lab 06/02/19 12:45 Uncollected LACTATE, PLASMA [CHEM] Lab 06/02/19 15:45 Uncollected LACTATE, PLASMA [CHEM] Q3H Lab 06/02/19 09:39 Received TYPE & SCREEN [BBK] Stat Lab 06/02/19 09:42 Received Patient agrees with POC rendered today. Result Diagrams: 06/02/19 09:39 06/02/19 09:39 - XRAY 1 XRAY Study: Chest Impression: See EMR Report (COMMENT: There is cardiomegaly. There are bilateral pleural effusions and ill-defined opacities over the lower lung ibrahim particularly on the right. This was not the case on 09/19/2018. IMPRESSION: Pleural effusions and pulmonary edema. Cardiomegaly. Electronically signed by Dino Mendoza 06/02/2019 11:56 AM) - CONSULTS/PCP/HOSPITALIST Notification #1 *Consult/PCP/Hospitalist*: [facility] Time Discussed: 12:59 Consult Disposition: Admit Departure - Departure Date of Disposition Decision: 06/02/19 Time of Disposition Decision: 12:59 DIAGNOSIS: CKD (chronic kidney disease) stage 3, GFR 30-59 ml/min Pneumonia Qualifiers: Pneumonia type: due to unspecified organism Laterality: bilateral Lung location: lower lobe of lung Qualified Code(s): J18.9 - Pneumonia, unspecified organism Anemia Qualifiers: Anemia type: other cause Other causes of anemia: other cause, not classified Qualified Code(s): D64.89 - Other specified anemias Leukocytosis Qualifiers: Leukocytosis type: unspecified Qualified Code(s): D72.829 - Elevated white blood cell count, unspecified Disposition: ADMITTED INPATIENT 09 Certified Medical Emergency: Emergent Condition: Poor Referrals and Follow-Ups: Cesar Trinh MD [Primary Care Provider] - - Critical Care Note This patient required my direct & personal management of CC.: Yes Total Time (mins): 120 Critical Care Statement: This patient required my direct personal management to treat or rule out processes, the absence of which, could potentiallly result in sudden, clinically significant life or limb threatening deterioration. Attestation - Physician/ DEAN Attestation Patient care was provided by Advanced Practice Provider:: Yes Advanced Practice Provider:: Mica Jo Advanced Practice Provider documentation review:: The Mid-level provider documentation, treatment plan and medical decision making was reviewed by the physician who agrees with all treatment and medical decision making by the MLP. The physician spent face to face time with patient:: Yes Advanced Practice Provider documentation review:: Supervising physician onsite and consulted in the evaluation and care of this patient. The physician did have a face to face encounter with the patient.
[2019-06-02 10:11] LABS: BASO# 0.01 X1000 (0.0-0.2); BASO% 0.1 % (0.0-0.8); EOS# 0.11 X1000 (0.0-0.7); EOS% 0.7 % (0.0-10.0); HEMATOCRIT 23.5 % (37.0-47.0); HEMOGLOBIN 6.2 g/dL (12.0-16.0); IMM GRAN# 0.11 X1000 (0.0-0.04); IMM GRAN% 0.7 % (0.0-0.5); LYMPH# 1.47 X1000 (1.2-3.4); MCH 18.3 PG (27-31); MCHC 26.4 g/dL (33-37); MCV 69.5 FL (81-99); MONO% 5.4 % (1.7-9.3); MPV 9.4 FL (7.4-10.4); NEUT# 12.22 X1000 (1.4-6.5); NEUT% 83.1 % (42.2-75.2); PLT 417 X1000 (130-400); RBC 3.38 XMIL (4.2-5.4); RDW 19.3 % (11.5-14.5); WBC 14.72 X1000 (4.8-10.8)
[2019-06-02] MEDS ORDERED: NS 500 ML IV ONE (10:29)
[2019-06-02 10:33] LABS: BANDS 2 % (0-1); EOS 2 % (1-10); LYMPHS 14 % (21-51); MONO 2 % (1-9); SEGS 80 % (42-75)
[2019-06-02 10:36] LABS: ALB/GLOB RATIO 0.9; ALBUMIN 3.5 g/dL (3.5-5.0); ANISOCYTOSIS 2+; CREATININE 1.2 mg/dL (0.5-0.9); HYPOCHROM 2+; MICROCYTOSIS 2+; POIKILOCYTOSIS 1+; POTASSIUM 4.7 mmol/L (3.5-5.1); TOTAL BILIRUBIN 0.46 mg/dL (0.20-1.00); TOTAL PROTEIN 7.2 g/dL (6.3-8.3)
[2019-06-02] MEDS ORDERED: HUMALOG SUBQ ONE (11:49)
--- NOTE | 2019-06-02 11:59 | Diag Imaging Result Doc PS360 ---
EXAM: CHEST-PORTABLE 06/02/2019 HISTORY: dyspnea TECHNIQUE: AP portable upright at 1150 COMMENT: There is cardiomegaly. There are bilateral pleural effusions and ill-defined opacities over the lower lung ibrahim particularly on the right. This was not the case on 09/19/2018. IMPRESSION: Pleural effusions and pulmonary edema. Cardiomegaly. Electronically signed by Dino Mendoza 06/02/2019 11:56 AM
[2019-06-02 12:53] LABS: URINE SOURCE CLEAN CATCH
[2019-06-02 13:03] LABS: BILIRUBIN URINE NEGATIVE (NEGATIVE); BLOOD URINE NEGATIVE (NEGATIVE); COLOR STRAW; GLUCOSE URINE NEGATIVE (NEGATIVE); KETONE URINE NEGATIVE (NEGATIVE); LEUKOCYTES URINE NEGATIVE (NEGATIVE); NITRITE URINE NEGATIVE (NEGATIVE); PROTEIN URINE NEGATIVE (NEGATIVE); SP GRAVITY URINE 1.006; TURBIDITY URINE CLEAR (CLEAR); UROBILINOGEN URINE NORMAL (NORMAL)
[2019-06-02 13:05] LABS: UR EPITHELIAL CELLS <10 /HPF (<10); URINE BACTERIA NEGATIVE /HPF; URINE RBC <10 /HPF (<10); URINE WBC <10 /HPF (<10)
[2019-06-02 14:22] LABS: INR 1.38; PROTIME 17.2 Seconds (11.0-16.0)
[2019-06-02 14:26] LABS: IRON SATURATION 4 %; TIBC 415 ug/dL; TOTAL IRON 17 ug/dL (49-151); UNBOUND IRON 398 ug/dL (112-346)
[2019-06-02] MEDS ORDERED: TYLENOL PO PRN (14:33)
[2019-06-02] MEDS ORDERED: ZOFRAN IV PRN (14:33)
[2019-06-02] MEDS ORDERED: LASIX IV ONE (14:37)
--- NOTE | 2019-06-02 14:44 | Diag Imaging Result Doc PS360 ---
EXAM: CT THORAX W/O CONTRAST HISTORY: SOB/bilateral pneumonia TECHNIQUE: CT chest without contrast COMPARISON: None. FINDINGS: There are sternal wires. The heart is markedly enlarged. Prominent atherosclerosis. No aortic aneurysm. Small to moderate-sized right-sided pleural effusion measuring 2.9 cm posteriorly and inferiorly in the midline. Trace left pleural fluid. There is basilar atelectasis as well as infiltrates with air bronchograms in the right lower lobe. There is a 13 mm nodule in the right upper lobe. 6 mm nodular density in the inferior portion of the left upper lobe. There is central vascular distention. IMPRESSION: 1.Marked cardiomegaly with vascular distention and pleural effusions 2.Basilar atelectasis with right lower lobe pneumonia 3.Right upper lobe lung nodule 4.Severe atherosclerosis This exam was performed using automated exposure control, adjustment of mA or kV according to patient size, and/or use of iterative reconstruction technique. Electronically signed by Cesar Chun 06/02/2019 2:42 PM
[2019-06-02] MEDS ORDERED: ZITHROMAX PO SCH (14:45)
[2019-06-02] MEDS: ROCEPHIN 1 GM in NS 50 ML IV SCH (16:20)
[2019-06-02] MEDS: DOXYCYCLINE PO SCH ×2 (16:21→20:41)
[2019-06-02] MEDS: NEURONTIN PO PRN (16:21)
--- NOTE | 2019-06-02 17:45 | HISTORY AND PHYSICAL ---
ADDENDUM: I have seen and examined Ms. Donahue today. Ms. Donahue complained of shortness of breath for the past 2 weeks which has progressively gotten worse associated with some swelling. She said she normally uses home oxygen about 3 L but even on oxygen she is still getting remarkably short of breath. She says she has been getting up in the middle of the night because of shortness of breath. She was called by her PCP to come to the emergency room because of low blood count. According to Ms. Donahue, she has been having also a lot of nasal bleed for the past 2 weeks. She has history atrial fibrillation, congestive heart failure. She is on Eliquis at home. OBJECTIVE: Her physical exam is positive for positive JVD, chest there is crackles in the posterior lung ibrahim.Cardiovascular: Irregularly irregular but seems to be rate control. There is an old sternotomy scar on the anterior chest wall. There is also midepigastric abdominal wall anterior abdominal wall scar. There is some mild edema on the lateral aspect of the abdominal wall. There is 1 to 2+ pedal edema on the lower extremities. LABORATORY DATA: Patient has leukocytosis, microcytic anemia, normal platelet count, creatinine is 1.2, which seems to be patient baseline. Pro B also elevated. A chest x- ray this morning did show pleural effusion and cardiomegaly. A CTA of the chest did show marked cardiomegaly with vascular distention and pleural effusion. There is bibasilar atelectasis with right lower lobe pneumonia, there is a right upper lobe lung nodule, there is severe atherosclerosis. ASSESSMENT: 1. Acute on chronic hypoxemic respiratory failure. 2. Bilateral pulmonary edema with pleural effusion secondary to congestive heart failure. 3. Right lower lobe pneumonia. 4. History of coronary artery disease status post coronary artery bypass graft. 5. Severe atherosclerosis on imaging. 6. Microcytic anemia secondary to severe iron deficiency. 7. Epistaxis most likely due to anticoagulation with Eliquis, this has been withhold. 8. Chronic kidney disease stage 3A. So for now we are going to continue with the antibiotic coverage, diuretic therapy, start the patient back on her home medications and will reevaluate her in the morning. Please refer to the details of the history and physical that has been dictated by the MAIN ENT[employer]OOK [employer] CASHIER in the chart. cc: MD SHANNON Cortés
[2019-06-02] MEDS ORDERED: NS 500 ML IV SCH (18:00)
[2019-06-02] MEDS: NORCO-10 PO PRN (18:29)
--- NOTE | 2019-06-02 19:30 | HISTORY AND PHYSICAL ---
CHIEF COMPLAINT: My blood count is low. HISTORY OF PRESENT ILLNESS: This is a 63-year-old female who presents to the emergency room at the instruction of her PCP. The patient states that she was evaluated by her PCP in the office yesterday for progressive shortness of breath that has been going on for the last 4 weeks. Over the last 2 weeks it has become pretty well consistent and she has had an increase in lower extremity edema. She reports PND over the last 2 weeks, stating that her normal weight is 180, but over the last 2 to 3 weeks she has ranged between 186 to 191. 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 She also reports nightly nosebleeds that has been present for about 2 months. She states that it does bleed every night, that she will wake up with her nose bleeding, feeling that she is choking. With holding pressure it will subside and that during the day she is blowing out blood clots, some large that she has the pulled out of her nose. She also stated that she has not told her PCP nor Dr. Whittaker about this. She has continued taking her Eliquis. PAST MEDICAL HISTORY: 1. Atrial fibrillation, chronic. 2. Congestive heart failure. 3. Chronic obstructive pulmonary disease. 4. Diabetes mellitus. 5. Chronic O2 at 3 L. PAST SURGICAL HISTORY: Appendectomy, cholecystectomy, hysterectomy, coronary artery bypass graft x3 grafts and colon resection. SOCIAL HISTORY: She denies alcohol, tobacco, or illicit drug use. ALLERGIES: Diltiazem, which causes a rash. Penicillin and sulfa, which cause a rash. HOME MEDICATIONS: A list will be obtained by the nursing staff and once verified review and restart as appropriate. REVIEW OF SYSTEMS: Discussed with the patient with pertinent positives stated in the HPI. She denied any syncope or dizziness, any chest pain or palpitations, a productive cough, any hemoptysis, any nausea, vomiting, diarrhea, constipation, black or bloody vomitus or stools, hematuria, dysuria, frequency, urgency. PHYSICAL EXAMINATION: GENERAL: This is a 63-year-old female who is sitting up on the bedside eating in no distress. VITAL SIGNS: Blood pressure is 130/62 with a heart rate of 78, respirations are 16, temperature is 98 degrees with O2 saturations 96 to 100 percent on 2 L nasal cannula. EYES: Pupils are equal, round, react to light. EOMs are intact. Sclerae anicteric. HEENT: Head is normocephalic, atraumatic. Mucous membranes are moist. NECK: Supple with trachea midline. She does have JVD. PULMONARY: She has bilateral lower lobe crackles. Chest rises and falls symmetric with respiration. CARDIOVASCULAR: Irregularly irregular rate and rhythm. S1 and S2 appreciated. GASTROINTESTINAL: Abdomen is soft, nontender, nondistended with bowel sounds in all 4 quadrants. : No CVA or suprapubic tenderness. EXTREMITIES: She has 2+ pedal edema bilateral. SKIN: Warm and dry with a healed sternotomy scar noted. LABS: WBC is 14.7 with hemoglobin 6.2, hematocrit 23.5, platelets of 417,000. Sodium 123, potassium 4.7, BUN 12, creatinine 1.2 with a glucose of 305. Urinalysis is essentially negative. Chest x-ray revealed pleural effusions with pulmonary edema and cardiomegaly. Chest x-ray revealed bilateral pleural effusions, ill-defined opacities over the lower lung ibrahim, particularly on the right. ASSESSMENT AND PLAN: 1. Acute on chronic hypoxemic respiratory failure. 2. Bilateral pulmonary edema with pleural effusion secondary to congestive heart failure. 3. Right lower lobe pneumonia. 4. History of coronary artery disease status post coronary artery bypass graft. 5. Microcytic anemia secondary to severe iron deficiency. 6. Epistaxis, most likely due to anticoagulation with Eliquis. 7. Chronic kidney disease stage IIIA. PLAN: 1. We will continue with supplemental oxygen at 3 L nasal cannula. 2. Continue her home medications as appropriate once identified. 3. We will give Lasix 40 mg IV now and q.12 hours. 4. Blood cultures have been obtained. Give Rocephin and doxycycline. 5. Transfuse 2 units of packed cells over 4 hours each. Recheck a CBC and CMP in the morning. 6. Check stools for blood. 7. Pattern blood glucose with sliding scale insulin. Check a hemoglobin A1c. 8. Further treatments pending hospital course. Dictated by ELLIOTT Henning for Jimi Staples MD cc: ELLIOTT Henning MD
[2019-06-02] MEDS: ICAR-C PO SCH (20:40)
[2019-06-02] MEDS: DESYREL PO SCH (20:40)
[2019-06-02] MEDS: REMERON PO SCH (20:41)
[2019-06-02] MEDS: LOPRESSOR PO SCH (20:41)
[2019-06-02] MEDS: RISPERDAL PO SCH (20:41)
[2019-06-02] MEDS: LIPITOR PO SCH (20:41)
[2019-06-02] MEDS: HUMALOG SUBQ SCH (20:44)
[2019-06-02] MEDS: PRILOSEC PO SCH (22:46)
[2019-06-03] MEDS: NORCO-10 PO PRN ×2 (04:39→17:35)
[2019-06-03 06:36] LABS: HEMATOCRIT 28.3 % (37.0-47.0); MCH 20.7 PG (27-31); MCHC 28.3 g/dL (33-37); MCV 73.3 FL (81-99); MPV 9.2 FL (7.4-10.4); RBC 3.86 XMIL (4.2-5.4); RDW 20.6 % (11.5-14.5); WBC 13.18 X1000 (4.8-10.8)
[2019-06-03] MEDS ORDERED: PRILOSEC PO SCH (07:00)
[2019-06-03 07:35] LABS: ALB/GLOB RATIO 1.3; ALBUMIN 3.8 g/dL (3.5-5.0); CALCIUM 9.2 mg/dL (8.8-10.2); CREATININE 1.2 mg/dL (0.5-0.9); POTASSIUM 4.4 mmol/L (3.5-5.1); TOTAL BILIRUBIN 0.7 mg/dL (0.20-1.00); TOTAL PROTEIN 6.8 g/dL (6.3-8.3)
[2019-06-03] MEDS: HUMALOG SUBQ SCH ×4 (08:00→21:14)
[2019-06-03] MEDS: SYNTHROID PO SCH (08:00)
[2019-06-03] MEDS ORDERED: LANTUS INSULIN SUBQ SCH (09:00)
[2019-06-03] MEDS: LOPRESSOR PO SCH ×2 (11:09→21:13)
[2019-06-03] MEDS: VENTOLIN HFA INH SCH (11:15)
[2019-06-03] MEDS: MIRAPEX PO SCH (11:16)
[2019-06-03] MEDS: EFFEXOR XR PO SCH (11:16)
[2019-06-03] MEDS: ICAR-C PO SCH ×2 (11:18→21:13)
[2019-06-03] MEDS: RISPERDAL PO SCH ×2 (11:19→21:13)
[2019-06-03] MEDS: PAMELOR PO SCH (11:20)
[2019-06-03] MEDS: LASIX IV SCH ×2 (11:21→21:14)
[2019-06-03] MEDS: DOXYCYCLINE PO SCH ×2 (11:23→21:13)
[2019-06-03] MEDS: LANOXIN PO SCH (11:25)
--- NOTE | 2019-06-03 13:08 | ECHO REPORT ---
ORDER DATE: 06/03/2019 INDICATIONS: Dyspnea, CHF, and atrial fibrillation. FINDINGS: 1. The right atrium is poorly visualized. 2. Mild to moderate tricuspid regurgitation. Poor evaluation of the RV systolic pressure, but RV systolic pressure is at least 41 mmHg. 3. The right ventricle appears to be enlarged with mild reduction in RV systolic function. 4. No significant pulmonic insufficiency. 5. Left atrium appears normal in size at 2.9 cm. 6. There is no mitral valve prolapse. There is a suggestion of possible mild mitral stenosis with mild restriction of the posterior leaflet. Peak gradient of 13 and mean of 3.5. Mild to possibly moderate mitral regurgitation is an eccentric posteriorly directed jet. 7. Left ventricle is normal in size with an end-diastolic dimension of 4.8 cm. Mild left ventricular hypertrophy with an intraventricular septal wall thickness of 1.3 cm. Normal LV systolic function. The estimated EF is 55% to 60% percent. 8. Aortic valve opens well. No evidence of stenosis or insufficiency. 9. Aorta appears normal visualized segments. 10. No pericardial effusion identified. cc: MD Julia Gaines CRNP
--- NOTE | 2019-06-03 13:28 | PROGRESS NOTE ---
DATE: 06/03/2019 SUBJECTIVE: This morning, Ms. Donahue refers to be doing well. She was actually sitting in the chair. She is down to about 2 liters on supplemental oxygen. She said her breathing has significantly improved, and she feels stronger. OBJECTIVELY: Vital Signs: Her current vital signs, blood pressure is 167/83, pulse of 100, respiration of 20, temperature 97.9 degrees, patient is saturating 96%. General: Ms. Donahue is a 63-year-old female. She was sitting up in a chair, in no distress. HEENT: Mucosa is pink and moist. Anicteric. Acyanotic. Neck: Supple. There was no JVD. Chest: Good air entry bilaterally. Few crackles in the posterior lung ibrahim. Cardiovascular: Regular rate with extrasystolic beats. There is an old sternotomy scar on the anterior chest wall. Gastrointestinal: Abdomen is soft, minimally distended, but nontender. Bowel sounds present. There is an old mid epigastric abdominal scar. Extremities: Trace pedal edema, slightly worse on the right than the left. Central Nervous System: The patient is awake, alert, oriented. There is no focal deficit. LABORATORY DATA: WBC is 13.18, hemoglobin of 8, platelet count of 333,000. Chemistry is also reviewed. Sodium 124, slightly getting better. Creatinine 1.2. So far, blood cultures still pending. The patient's urine output was 3600. She is currently negative balance of 2117. MEDICATIONS: Have all been reviewed. ASSESSMENT/PLAN: 1. Acute on chronic hypoxemic respiratory failure secondary to combination of pulmonary edema, pleural effusion, and right lower lobe pneumonia. The patient is back to 2 liters of supplemental oxygen. She refers to be doing well. We are going to continue addressing the underlying individual diseases. 2. Congestive heart failure exacerbation. The patient is pending an echocardiogram. 3. Right lower lobe pneumonia. We will continue with ceftriaxone and doxycycline. 4. History of coronary artery disease, status post coronary artery bypass graft. 5. Severe atherosclerosis on imaging. The patient is on statin and aspirin. 6. Microcytic anemia secondary to severe iron deficiency. The patient is status post 2 units of packed red blood cells transfusion. Hemoglobin is up to 8 this morning. Presumed to be from epistaxis however a chronic GI blood loss cannot be entirely rule out. FOBT is ordered and I will consult GI. 7. Recent history of uncontrollable recurrent epistaxis, likely due to Eliquis anticoagulation. This has been withheld. 8. Chronic kidney disease stage IIIA, noted. 9. Diabetes mellitus on insulin regimen, presenting A1c of 8. We will continue with insulin. 10. Epistaxis on Eliquis. Medication has been discontinue. ENT consulted by cardiology SUMMARY: In general, Ms. Donahue seems to be doing well. She was sitting up in a chair this morning. She is on 2 liters of supplemental oxygen. She feels a lot better. She is status post 2 units of packed red blood cells transfusion. We are going to continue with the current diuretic therapy, reevaluate her in the morning. Follow up with physical therapy's recommendations today. Hopefully, in the next 24 hours, I think we can potentially discharge Ms. Donahue. Ms. Donahue is still pending echocardiogram report and Cardiology consult. cc: Jimi Staples MD MTDD
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
[2019-06-03] MEDS: ROCEPHIN 1 GM in NS 50 ML IV SCH (16:35)
[2019-06-03] MEDS: PRILOSEC PO SCH (21:13)
[2019-06-03] MEDS: REMERON PO SCH (21:13)
[2019-06-03] MEDS: LIPITOR PO SCH (21:13)
[2019-06-03] MEDS: DESYREL PO SCH (21:13)
[2019-06-04] MEDS: NORCO-10 PO PRN ×2 (02:35→10:31)
[2019-06-04] MEDS: NEURONTIN PO PRN ×2 (02:52→10:31)
[2019-06-04] MEDS: HUMALOG SUBQ SCH ×2 (06:47→11:07)
[2019-06-04] MEDS: SYNTHROID PO SCH (06:47)
[2019-06-04] MEDS ORDERED: LINZESS PO SCH (07:00)
[2019-06-04 07:23] LABS: HEMATOCRIT 31.7 % (37.0-47.0); HEMOGLOBIN 8.8 g/dL (12.0-16.0); MCH 20.3 PG (27-31); MCHC 27.8 g/dL (33-37); MPV 9.6 FL (7.4-10.4); RBC 4.34 XMIL (4.2-5.4); RDW 21.8 % (11.5-14.5); WBC 13.33 X1000 (4.8-10.8)
[2019-06-04 07:43] LABS: CALCIUM 10.2 mg/dL (8.8-10.2); CREATININE 1.3 mg/dL (0.5-0.9); MAGNESIUM 1.7 mg/dL (1.5-2.7); PHOSPHORUS 3.9 mg/dL (2.7-4.5); POTASSIUM 4.1 mmol/L (3.5-5.1)
--- NOTE | 2019-06-04 08:08 | Diag Imaging Result Doc PS360 ---
CHEST-2 VIEWS - 06/04/2019 INDICATION: hypoxia COMPARISON: 06/02/2019 FINDINGS: Stable cardiomegaly. There has been some improvement in the pulmonary vascular congestion. Stable small right pleural effusion. There is been improvement in the hazy bibasilar infiltrates. IMPRESSION: Moderate improvement from prior. Electronically signed by Tomy Parmar 06/04/2019 8:05 AM
[2019-06-04] MEDS: VENTOLIN HFA INH SCH (08:29)
[2019-06-04] MEDS ORDERED: LANTUS INSULIN SUBQ SCH (09:00)
[2019-06-04] MEDS ORDERED: ZYLOPRIM PO SCH (09:00)
[2019-06-04] MEDS ORDERED: SODIUM CHLORIDE 0.9% INJ SCH (10:15)
[2019-06-04] MEDS ORDERED: PROTONIX IV SCH (10:15)
[2019-06-04] MEDS: RISPERDAL PO SCH (10:24)
[2019-06-04] MEDS: LOPRESSOR PO SCH (10:24)
[2019-06-04] MEDS: PAMELOR PO SCH (10:24)
[2019-06-04] MEDS: EFFEXOR XR PO SCH (10:25)
[2019-06-04] MEDS: ICAR-C PO SCH (10:25)
[2019-06-04] MEDS: MIRAPEX PO SCH (10:26)
[2019-06-04] MEDS: LANOXIN PO SCH (10:26)
[2019-06-04] MEDS: LASIX IV SCH (10:32)
[2019-06-04] MEDS: DOXYCYCLINE PO SCH (10:34)
--- NOTE | 2019-06-04 11:58 | PROGRESS NOTE ---
DATE: 06/04/2019 SUBJECTIVE: I have seen and examined Ms. Donahue this morning. She refers to be doing a lot better. Has not had any more nasal bleed and she is pending evaluation by ENT. OBJECTIVE: Vital signs: Blood pressure of 185/66, pulse of 102, respiration is 18, temperature 97.4 degrees. The patient is saturating 100% on 3 L. General: Ms. Donahue is a 63-year-old female. She was sitting up in a chair, no distress. HEENT: Mucosa is pink and moist. Anicteric. Acyanotic. Neck: Supple. I did not see any JVD. Chest: Good air entry bilateral, still a few crackles in posterior lung ibrahim. Cardiovascular: Regular rate and rhythm. No murmurs, no rubs, no gallops. There is an old sternotomy scar on the anterior chest wall. Gastrointestinal: Abdomen is soft, nontender. Bowel sounds present. There are old mid epigastric surgical scars. Extremities: Minimum trace pedal edema. Central nervous system: Patient is awake, alert, oriented. There is no focal deficit. Intake and output: Urine output was 6900. She is currently negative balance of 7337. LABORATORY DATA: Has been reviewed. Hemoglobin is 8.8. Chemistry is also reviewed. Sodium is 126, creatinine is slightly up to 1.3. Pro B is down to 2800. IMAGING: A chest x-ray this morning showed moderate improvement from prior. ASSESSMENT: 1. Acute on chronic hypoxemic respiratory failure secondary to a combination of pulmonary edema, pleural effusion and right lower lobe pneumonia. Patient is currently back on 2 L of supplemental oxygen. She is doing well. 2. Fluid overload secondary to congestive heart failure exacerbation. The patient is on Lopressor, diuretic therapy, digoxin. Has been evaluated also by Cardiology. We are pending the report on echocardiogram today. 3. Right lower lobe pneumonia. Patient is on ceftriaxone and doxycycline. Today is day 2 of antimicrobial coverage. Chest x-ray looks remarkably better. 4. History of coronary artery disease status post coronary artery bypass grafting, noted. 5. Microcytic anemia due to severe iron deficiency. The patient is status post 2 packed red blood cells transfusion. Hemoglobin and hematocrit is improved. 6. Severe recurrent epistaxis on Eliquis. Medication has been discontinued. ENT has been consulted. We are pending on their evaluation and recommendations. 7. Chronic kidney disease stage IIIA. Creatinine has slightly gone up. I think this is probably due to over-diuresis. The patient is currently not showing any more congestive signs nor symptoms, so I will transition the IV preparation to p.o. PLAN: In general, I think Ms. Donahue is doing a lot better. She was sitting up. She is now down to just 2 L on supplemental oxygen. She was evaluated by Physical Therapy yesterday, was able to walk about 45 feet. I think she is clinically stable. We will be pending the evaluation and recommendations from ENT and then hopefully can get Ms. Donahue discharged either today or tomorrow. cc: Jimi Staples MD MTDD
[2019-06-04] MEDS ORDERED: MIRALAX PO SCH (12:30)
[2019-06-04 14:35] VITALS: BP 126/49
[2019-06-04] MEDS: ROCEPHIN 1 GM in NS 50 ML IV SCH (14:44)
--- NOTE | 2019-06-04 15:03 | DISCHARGE SUMMARY ---
ADMISSION DATE: 06/02/2019 DISCHARGE DATE: 06/04/2019 DISPOSITION: Home. FOLLOW-UP: Will be: 1. Dr. Hurst. 2. Dr. Plascencia. 3. Dr. Whittaker. 4. Dr. Cesar Trinh. CONSULTATION DURING THIS ADMISSION: 1. Cardiology was consulted. Patient was seen by Dr. Whittaker. 2. GI was consulted. 3. ENT was also consulted. ADMISSION DIAGNOSES: 1. Acute on chronic hypoxemic respiratory failure. 2. Bilateral pulmonary edema. 3. Microcytic anemia. 4. Epistaxis. DIAGNOSES AT THE TIME OF DISCHARGE: 1. Acute on chronic hypoxemic respiratory failure secondary to a combination of pulmonary edema, pleural effusion and right lower lobe pneumonia. 2. Fluid overload secondary to congestive heart failure with preserved ejection fraction. 3. Right lower lobe pneumonia, improved. 4. History of coronary artery disease, status post coronary artery bypass graft. 5. Microcytic anemia secondary to iron deficiency. 6. Recurrent epistaxis on Eliquis anticoagulation. This has been withheld. 7. Chronic kidney disease stage III-A. 8. Diabetes mellitus with presenting A1c of 8.0. DISCHARGE MEDICATIONS: 1. Atorvastatin 40 mg p.o. daily. 2. Synthroid 50 mcg p.o. daily. 3. Mirtazapine 30 mg p.o. at bedtime. 4. Effexor. 5. Lactobacillus. 6. Digoxin 125 mcg p.o. daily. 7. Furosemide 40 mg p.o. daily. 8. Gabapentin 300 mg 3 times per day p.r.n. 9. Linzess. 10. Nortriptyline 25 mg p.o. daily. 11. Eliquis 5 mg b.i.d. has been withheld. 12. Glimepiride 4 mg daily. 13. Omeprazole 40 mg p.o. daily. 14. Doxycycline 100 mg b.i.d. 15. Metoprolol 12.5 b.i.d. PRESENTING COMPLAINT: Low blood count. HISTORY OF PRESENTING COMPLAINT: Ms. Donahue is a 63-year-old female, who presented to the emergency room because she has been complaining of progressive weakness and shortness of breath, epistaxis. Did laboratory data with her primary care, was found to be remarkably low, was advised to come to the emergency room where she was evaluated, was found to have hemoglobin of 6.2. She was also found to be fluid overload. She was admitted for further medical care. HOSPITAL COURSE: Ms Donahue was admitted to the medical floor, was started on IV diuretic therapy. She was transfused 2 PRBCs. Hemoglobin got improved. She felt better. Cardiology was consulted. The patient was seen by Dr. Whittaker, who recommended consult with ENT. Dr. Hurst I understand was consulted and, because patient is currently not actively bleeding and Eliquis has been withheld, he prefers to follow up with the patient on an outpatient basis. An appointment has been set up for this coming Saturday. Ms Donahue was also consulted with GI, and the plan also to follow her on an outpatient basis. She is not showing any signs of any ongoing blood loss. Blood cultures all came back negative. Ms. Donahue has been evaluated on multiple occasions by physical therapy. This morning, she was able to do 250 feet with contact guard assistance. All her laboratory data has been reviewed. We think she is fairly stable to be discharged to continue with the medications and follow up with her primary care and the subspecialties named above. DISCHARGE TIME: 35 minutes. cc: Jimi Staples MD MTDD
--- NOTE | 2019-06-04 16:34 | GASTROENTEROLOGY CONSULTATION ---
DATE: 06/04/2019 REASON FOR CONSULT: Symptomatic anemia. HISTORY OF PRESENT ILLNESS: Ms. Donahue is a 63-year-old female who came to the emergency department on 06/01. She was evaluated by her primary care in the office and they found that she was anemic, having shortness of breath, which had been going on for over 4 weeks and nose bleeds for the last 2 months and she was advised by her PCP to come to the hospital. The patient mentioned that some times she gets blood clots and then she has profuse bleeding causing her to have pressure on her forehead. The patient has complained about occasional nausea, but denies any vomiting. She does have seasonal allergies for which she takes Benadryl. Patient has complained of shortness of breath, weakness and chills but denied any fever. She mentioned having an EGD and colonoscopy done by Dr. Kessler but does not remember exactly when. EGD revealed that she had some ulcers and colonoscopy showed that she had 1 big polyp which they were not able to take it out so they had to take a part of her colon. The patient's hemoglobin, hematocrit on admission was 6.2 and 23.5. Today, it is 8.8 and 31.7. The patient has received 2 units of blood so far. Her chest CT on 06/01 has shown marked cardiomegaly with vascular distention and pleural effusion, bibasilar atelectasis with right lower lobe pneumonia, right upper lobe lung nodule and severe atherosclerosis. Echocardiogram showed her ejection fraction of 55% to 60%. The patient's chest x-ray showed moderate improvement from prior.The patient is on Eliquis 5 mg p.o. twice a day PAST MEDICAL HISTORY: Atrial fibrillation, congestive heart failure, chronic obstructive pulmonary disease, diabetes mellitus, coronary artery disease status post bypass surgery and oxygen 2 L nasal cannula. PAST SURGICAL HISTORY: Appendectomy, cholecystectomy, hysterectomy, coronary artery bypass grafts x3, and colon resection. SOCIAL HISTORY: The patient has denied any alcohol, tobacco, or illicit drug use. ALLERGIES: Penicillin, sulfa, and diltiazem. FAMILY HISTORY: Her dad had colon cancer, and mom has dementia. HOME MEDICATIONS: Albuterol sulfate 4 puffs daily, atorvastatin 1 tablet p.o. 40 mg 1 tablet at bedtime, Synthroid 50 mcg 1 tablet daily, metoprolol 50 mg 1 tablet daily, Remeron 30 mg p.o. bedtime, [place] 10/325 mg 1 tablet p.o. every 8 hours. Venlafaxine 75 mg 1 tablet 3 times a day, Culturelle 1 tablet twice a day, Icar 1 tablet p.o. twice a day, digoxin 125 mg 1 tablet daily, Lasix 40 mg 1 tablet daily, Neurontin 300 mg 1 tablet 3 times a day. Linzess 1 tablet p.o. daily, nortriptyline 25 mg 1 tablet p.o. daily, allopurinol 300 mg 1 tablet daily, Eliquis 5 mg p.o. twice a day, vitamin D2 1 tablet p.o. daily, 98173 units, glimepiride 4 mg 1 tablet daily, omeprazole 40 mg 1 capsule at bedtime. Pramipexole 1 tab 0.125 mg 1 tablet daily Risperidone 1 mg p.o. twice a day. Trazodone 100 mg p.o. at bedtime. Victoza 1.2 mg subQ bedtime, Tresiba 40 units subQ daily. REVIEW OF SYSTEMS: As per HPI. Otherwise, 12 point review of system is negative. PHYSICAL EXAMINATION: Vital Signs: Temperature 97.7, pulse 80, respirations 18, blood pressure 126/49, oxygen saturation 97% on 2 L nasal cannula. The patient's weight is 182 pounds. BMI is 36.8 kg/m2. General: She is alert, oriented x3, and in no acute distress. HEENT: Pale conjunctivae. No icterus. PERRL. Neck: Supple. Lungs: Clear to auscultation. Cardiovascular: Regular rate and rhythm. Abdomen: Soft. Nontender, nondistended. Active bowel sounds heard in 4 quadrants. Extremities: No clubbing, no cyanosis, no edema. Pedal pulses 2+ present bilaterally. Neurological: Alert, oriented x3. Nonfocal. Cranial nerves 2-12 grossly intact. LABORATORY DATA: WBCs are 13.33, RBC is 4.34, hemoglobin is 8.8, hematocrit is 31.7, platelet count is 443,000. Sodium 126, potassium 4.1, chloride 83, carbon dioxide 33, anion gap 10, BUN 18, creatinine is 1.3, glucose 144, calcium 10.2, phosphorus 3.9, magnesium 1.7. Albumin is 4.0. Urinalysis was negative. IMAGING: Chest x-ray had today has shown moderate improvement from prior. IMPRESSION AND PLAN: 1. Anemia. 2. Recurrent Epistaxis for last 2 months. 3. Respiratory failure - Improving. 4. Congestive heart failure. 5. Pneumonia. 6. Chronic kidney disease. 7. Diabetes mellitus. 8. H/o Colon polyps PLAN: Ms. Donahue is a 63-year-old female with a history of atrial fibrillation, congestive heart failure, COPD, and coronary artery disease. GI has been consulted for her anemia. Patient is c/o of epistaxis. We recommend an ENT consult for the patient. Her hemoglobin and hematocrit today is 8.8 and 31.7. The patient has denied noticing any further nosebleeds. The patient is not showing any signs of blood loss from her GI tract. She has discharge orders to go home. She is a patient of Dr. Kessler and can f/u with him as an outpatient. The patient needs an ENT consult. This plan was discussed with Dr. Bridges. Please call us with any further questions or concerns. Thank you for your consult. Dictated by ELLIOTT Mathews for David Bridges MD cc: David Bridges MD I have seen and examined the patient myself and I agree with the above plan of care. Please call us with any further questions or concerns. SHANNON
[2019-06-05] MEDS ORDERED: VITAMIN D PO SCH (09:00)
== END 2019-06-04 17:00 | disposition home health service (06) | DRG 291 ==
LOC: ED 09:23 → 4N 15:43
PROVIDERS: ATTEND Internal Medicine